=== PATIENT | male | born 1945 | race African-American/Black ===

== ENCOUNTER 2020-12-07 20:13 | Inpatient (IN) ==
[2020-12-07] MEDS ORDERED: SODIUM CHLORIDE 0.9% 1,000 ML IV STA ×2 (20:39→21:39)
[2020-12-07 20:47] LABS: Basophils % 0.3 % (0.0-0.8); Eosinophils % 0.3 % (0.00-10.9); Hematocrit 43.6 VOL% (42.0-52.0); Hemoglobin 13.6 GM/DL (14.0-18.0); Immature Granulocytes % 0.5 %; Immature Granulocytes Absolute 0.04 #; Lymphocytes # 0.8 10*3/uL (1.4-4.0); Lymphocytes % 10.6 % (21.2-54.2); Mean Corpuscular HGB Conc 31.2 GM/DL (32-36); Mean Corpuscular Volume 98.6 FL (87-102); Mean Platelet Volume 10.5 FL (9.6-12.0); Monocytes % 1.7 % (1.7-12.7); Neutrophils % 86.6 % (38.7-73.9); Platelet Count 188 T/CUMM (130-400); Red Blood Count 4.42 MC/CUMM (3.8-5.5); Red Cell Distribution Width 13.5 % (9.3-17.3); White Blood Count 7.6 T/CUMM (4-12)
[2020-12-07 20:53] LABS: INR 1.1; PT Patient Result 11.9 SECS (10.5-12.0)
[2020-12-07 21:02] LABS: Alanine Aminotransferase 19 U/L (16-61); Albumin 3.5 G/DL (3.4-5.0); Alkaline Phosphatase 116 U/L (45-117); Aspartate Amino Transferase 31 U/L (0-37); Blood Urea Nitrogen 22 MG/DL (7-18); Calcium 9.1 MG/DL (8.5-10.1); Carbon Dioxide 27 MMOL/L (21-32); Estimated Glom Filtration Rate 85 ML/MIN; Glucose 141 MG/DL (74-106); Osmolality,Calculated 287.1 MOS/KG (273-304); Potassium 4.5 MMOL/L (3.5-5.1); Sodium 142 MMOL/L (136-145)
[2020-12-07 21:25] LABS: ABG Base Excess -0.5 MMOL/L (-2.5-2.5); ABG Oxygen Saturation 97.9 % (95-100); ABG PCO2 35.4 MM HG (35-48); ABG PH 7.426 (7.35-7.45); ABG PO2 95.5 MM HG (80-95); ABG TCO2 20.4 MMOL/L (23-27); Allen Test Positive; Pt O2 Delivery Device Room Air
[2020-12-07 23:19] LABS: Bacteria,Urine Occasional /HPF (Few); Bilirubin,Urine Small mg/dL (Negative); Blood, Urine Negative (Negative); Glucose,Urine (UA) Negative (Negative); Hyaline Casts,Urine 16 /LPF (0-3); Ketones,Urine 5 mg/dL (Negative); Mucus,Urine Moderate /LPF (Occasional); Nitrite,Urine Negative (Negative); Protein,Urine 30 MG/DL; RBC,Urine 2 /HPF (0-4); Urine Appearance Slightly Hazy (Clear); Urine Color Amber (Yellow); Urine Specific Gravity 1.017 (1.001-1.035)
[2020-12-07] MEDS ORDERED: PIPERACILLIN/TAZOBACTAM 3,375 MG in SODIUM CHLORIDE 0.9% 100 ML IV STA (23:43)
[2020-12-08] MEDS ORDERED: SODIUM CHLORIDE 0.9% 250 ML IV STA (00:02)
[2020-12-08] MEDS ORDERED: ONDANSETRON 4 MG/2 ML VIAL IV PRN (03:02)
[2020-12-08] MEDS ORDERED: ALBUTEROL 2.5 MG/3 ML NEB RESP TX PRN (03:02)
[2020-12-08] MEDS ORDERED: ENOXAPARIN 30 MG/0.3 ML SYRINGE SUBCUT SCH (03:30)
[2020-12-08] MEDS ORDERED: DOPamine 800 MG/250 ML PREMIX IV SCH (03:30)
[2020-12-08] MEDS: LACTATED RINGERS 1,000 ML IV SCH ×2 (03:59→13:36)
[2020-12-08] MEDS ORDERED: ENOXAPARIN 40 MG/0.4 ML SYRINGE SUBCUT SCH (04:00)
[2020-12-08] MEDS: PANTOPRAZOLE 40 MG VIAL IV SCH (04:01)
[2020-12-08] MEDS: LEVOFLOXACIN INJ 750 MG/150 ML PREMIX IV SCH (04:03)
[2020-12-08 05:27] LABS: Basophils % 0.1 % (0.0-0.8); Hematocrit 37.7 VOL% (42.0-52.0); Hemoglobin 11.9 GM/DL (14.0-18.0); Immature Granulocytes % 0.6 %; Immature Granulocytes Absolute 0.08 #; Lymphocytes % 6.6 % (21.2-54.2); Mean Corpuscular HGB Conc 31.6 GM/DL (32-36); Mean Corpuscular Volume 98.7 FL (87-102); Mean Platelet Volume 10.2 FL (9.6-12.0); Monocytes % 7.3 % (1.7-12.7); Neutrophils % 85.4 % (38.7-73.9); Platelet Count 149 T/CUMM (130-400); Red Blood Count 3.82 MC/CUMM (3.8-5.5); Red Cell Distribution Width 13.8 % (9.3-17.3); White Blood Count 14.3 T/CUMM (4-12)
[2020-12-08 05:52] LABS: Albumin 2.7 G/DL (3.4-5.0); Bilirubin,Total 0.9 MG/DL (0.2-1.0); Calcium 8.2 MG/DL (8.5-10.1); Osmolality,Calculated 287.3 MOS/KG (273-304); Total Protein 6.6 G/DL (6.4-8.2)
[2020-12-08] MEDS ORDERED: SODIUM CHLORIDE 0.9% 500 ML IV ONE (12:33)
[2020-12-08] MEDS: CARBIDOPA/LEVODOPA 25-250 MG TABLET PO SCH ×2 (14:32→21:23)
[2020-12-08] MEDS: LURASIDONE 40 MG TABLET PO SCH (17:53)
[2020-12-08] MEDS: AMANTADINE 100 MG CAPSULE PO SCH (21:23)
[2020-12-08] MEDS: ATORVASTATIN 20 MG TABLET PO SCH (21:24)
[2020-12-09] MEDS: LACTATED RINGERS 1,000 ML IV SCH ×3 (01:10→21:18)
[2020-12-09] MEDS: LEVOFLOXACIN INJ 750 MG/150 ML PREMIX IV SCH (03:20)
[2020-12-09] MEDS: PANTOPRAZOLE 40 MG VIAL IV SCH (03:22)
[2020-12-09 06:04] LABS: Basophils % 0.4 % (0.0-0.8); Eosinophils # 0.1 10*3/uL (0.0-0.87); Eosinophils % 0.7 % (0.00-10.9); Hematocrit 31.9 VOL% (42.0-52.0); Hemoglobin 10.3 GM/DL (14.0-18.0); Immature Granulocytes % 0.6 %; Immature Granulocytes Absolute 0.04 #; Lymphocytes # 1.8 10*3/uL (1.4-4.0); Lymphocytes % 25.4 % (21.2-54.2); Mean Corpuscular HGB Conc 32.3 GM/DL (32-36); Monocytes % 6.8 % (1.7-12.7); Neutrophils % 66.1 % (38.7-73.9); Platelet Count 123 T/CUMM (130-400); Red Blood Count 3.29 MC/CUMM (3.8-5.5); Red Cell Distribution Width 13.9 % (9.3-17.3); White Blood Count 7.1 T/CUMM (4-12)
[2020-12-09] MEDS: CARBIDOPA/LEVODOPA 25-250 MG TABLET PO SCH ×3 (06:07→22:56)
[2020-12-09 06:24] LABS: Calcium 7.9 MG/DL (8.5-10.1); Osmolality,Calculated 284.1 MOS/KG (273-304); Potassium 3.5 MMOL/L (3.5-5.1)
[2020-12-09] MEDS ORDERED: MAGNESIUM SULF RIDER 4 GM/100 ML PREMIX IV ONE (07:45)
[2020-12-09] MEDS: MEROPENEM 500 MG in SODIUM CHLORIDE 0.9% 100 ML IV SCH ×2 (09:20→15:30)
[2020-12-09] MEDS: PANTOPRAZOLE 40 MG TABLET PO SCH (09:22)
[2020-12-09] MEDS: THIAMINE 100 MG TABLET PO SCH (09:23)
[2020-12-09] MEDS: AMANTADINE 100 MG CAPSULE PO SCH ×2 (09:23→20:40)
[2020-12-09] MEDS: MULTIVITAMIN (CENTRUM) TABLET PO SCH (09:23)
[2020-12-09] MEDS: FOLIC ACID 1 MG TABLET PO SCH (09:23)
[2020-12-09] MEDS: cefTRIAXone 1,000 MG in SODIUM CHLORIDE 0.9% 100 ML IV SCH (16:10)
[2020-12-09] MEDS: LURASIDONE 40 MG TABLET PO SCH (18:15)
[2020-12-09] MEDS: ATORVASTATIN 20 MG TABLET PO SCH (20:40)
[2020-12-10] MEDS: LEVOFLOXACIN INJ 750 MG/150 ML PREMIX IV SCH (03:50)
[2020-12-10] MEDS ORDERED: METOPROLOL TARTRATE 5 MG/5 ML VIAL IV ONE ×2 (04:59→05:00)
[2020-12-10 05:17] LABS: Basophils % 0.6 % (0.0-0.8); Eosinophils # 0.1 10*3/uL (0.0-0.87); Eosinophils % 1.7 % (0.00-10.9); Hematocrit 33.6 VOL% (42.0-52.0); Hemoglobin 10.6 GM/DL (14.0-18.0); Immature Granulocytes % 0.2 %; Immature Granulocytes Absolute 0.01 #; Lymphocytes # 1.5 10*3/uL (1.4-4.0); Mean Corpuscular HGB Conc 31.5 GM/DL (32-36); Mean Corpuscular Volume 97.7 FL (87-102); Mean Platelet Volume 10.7 FL (9.6-12.0); Monocytes % 8.2 % (1.7-12.7); Neutrophils % 61.3 % (38.7-73.9); Platelet Count 143 T/CUMM (130-400); Red Blood Count 3.44 MC/CUMM (3.8-5.5); Red Cell Distribution Width 13.6 % (9.3-17.3); White Blood Count 5.4 T/CUMM (4-12)
[2020-12-10] MEDS ORDERED: POTASSIUM CHLORIDE 20 MEQ TABLET PO PRN (05:31)
[2020-12-10 05:32] LABS: Osmolality,Calculated 285.7 MOS/KG (273-304)
[2020-12-10] MEDS ORDERED: POTASSIUM CHLORIDE 20 MEQ TABLET PO ONE (05:33)
[2020-12-10] MEDS: CARBIDOPA/LEVODOPA 25-250 MG TABLET PO SCH ×3 (06:33→22:02)
[2020-12-10] MEDS: LACTATED RINGERS 1,000 ML IV SCH (07:19)
[2020-12-10] MEDS: PANTOPRAZOLE 40 MG TABLET PO SCH (08:32)
[2020-12-10] MEDS: THIAMINE 100 MG TABLET PO SCH (08:32)
[2020-12-10] MEDS: FOLIC ACID 1 MG TABLET PO SCH (08:32)
[2020-12-10] MEDS: MULTIVITAMIN (CENTRUM) TABLET PO SCH (08:32)
[2020-12-10] MEDS: AMANTADINE 100 MG CAPSULE PO SCH ×2 (08:32→22:03)
[2020-12-10] MEDS: carvediloL 25 MG TABLET PO SCH ×2 (08:32→16:26)
[2020-12-10] MEDS: POTASSIUM CHLORIDE 20 MEQ TABLET PO SCH ×3 (09:00→17:24)
[2020-12-10] MEDS ORDERED: SKIN HEALING OINT (AQUAPHOR) 50 GM TUBE TOP PRN (09:17)
[2020-12-10] MEDS: cefTRIAXone 1,000 MG in SODIUM CHLORIDE 0.9% 100 ML IV SCH (15:52)
[2020-12-10] MEDS: LURASIDONE 40 MG TABLET PO SCH (16:26)
[2020-12-10] MEDS: ATORVASTATIN 20 MG TABLET PO SCH (22:02)
[2020-12-11] MEDS: LACTATED RINGERS 1,000 ML IV SCH ×3 (04:45→14:35)
[2020-12-11 04:56] LABS: Basophils % 0.5 % (0.0-0.8); Eosinophils # 0.1 10*3/uL (0.0-0.87); Hemoglobin 10.5 GM/DL (14.0-18.0); Immature Granulocytes % 0.3 %; Immature Granulocytes Absolute 0.01 #; Lymphocytes # 1.5 10*3/uL (1.4-4.0); Lymphocytes % 37.6 % (21.2-54.2); Mean Corpuscular HGB Conc 32.8 GM/DL (32-36); Mean Corpuscular Volume 95.2 FL (87-102); Mean Platelet Volume 10.4 FL (9.6-12.0); Neutrophils % 49.6 % (38.7-73.9); Platelet Count 144 T/CUMM (130-400); Red Blood Count 3.36 MC/CUMM (3.8-5.5); Red Cell Distribution Width 13.5 % (9.3-17.3); White Blood Count 3.9 T/CUMM (4-12)
[2020-12-11 05:22] LABS: Calcium 8.2 MG/DL (8.5-10.1); Osmolality,Calculated 284.7 MOS/KG (273-304); Potassium 3.4 MMOL/L (3.5-5.1)
[2020-12-11] MEDS: CARBIDOPA/LEVODOPA 25-250 MG TABLET PO SCH ×2 (06:27→14:28)
[2020-12-11] MEDS: AMANTADINE 100 MG CAPSULE PO SCH (08:29)
[2020-12-11] MEDS: FOLIC ACID 1 MG TABLET PO SCH (08:30)
[2020-12-11] MEDS: carvediloL 25 MG TABLET PO SCH (08:30)
[2020-12-11] MEDS: PANTOPRAZOLE 40 MG TABLET PO SCH (08:30)
[2020-12-11] MEDS: MULTIVITAMIN (CENTRUM) TABLET PO SCH (08:30)
[2020-12-11] MEDS: THIAMINE 100 MG TABLET PO SCH (08:30)
[2020-12-11] MEDS ORDERED: LEVOFLOXACIN 750 MG TABLET PO SCH (09:00)
[2020-12-11 15:22] VITALS: BP 143/102
== END 2020-12-11 16:30 | DRG 871 ==
LOC: EDUNIT# → EDBD → N.ED 20:13 → N.EDINP 12-08 02:21 → SUATTDRO 12-08 02:21 → N.ICU 12-08 03:11 → N.4E 12-10 11:48
PROVIDERS: ADMIT Family Medicine; ATTEND Internal Medicine